=== PATIENT | female | born 1970 | race Caucasian/White ===

== ENCOUNTER 2024-06-19 10:08 | Outpatient (CLI) | payer SELFPAY | END 2024-06-19 10:09 | disposition home or self-care (01) | LOC: CSHWCC 10:08 | PROVIDERS: ATTEND Nurse Practitioner Family | DX: I87.311 Chronic venous hypertension (idiopathic) with ulcer of right lower extremity (principal); L97.212 Non-pressure chronic ulcer of right calf with fat layer exposed; Q85.00 Neurofibromatosis, unspecified | CPT/HCPCS: 11042; 11045; 87070; 87205; 99213; G0463 ==

== ENCOUNTER 2024-06-26 10:26 | Outpatient (CLI) | payer SELFPAY | END 2024-06-26 10:27 | disposition home or self-care (01) | LOC: CSHWCC 10:26 | PROVIDERS: ATTEND Nurse Practitioner Family | DX: I87.311 Chronic venous hypertension (idiopathic) with ulcer of right lower extremity (principal); L97.212 Non-pressure chronic ulcer of right calf with fat layer exposed; Q85.00 Neurofibromatosis, unspecified | CPT/HCPCS: 11042; 11045 ==

== ENCOUNTER 2024-07-10 08:45 | Outpatient (CLI) | payer SELFPAY | END 2024-07-10 08:46 | disposition home or self-care (01) | LOC: CSHWCC 08:45 | PROVIDERS: ATTEND Nurse Practitioner Family | DX: I87.311 Chronic venous hypertension (idiopathic) with ulcer of right lower extremity (principal); L97.212 Non-pressure chronic ulcer of right calf with fat layer exposed; Q85.00 Neurofibromatosis, unspecified | CPT/HCPCS: 11042; 11045; 99213; G0463 ==

== ENCOUNTER 2024-07-17 09:18 | Outpatient (CLI) | payer SELFPAY | END 2024-07-17 09:19 | disposition home or self-care (01) | LOC: CSHWCC 09:18 | PROVIDERS: ATTEND Nurse Practitioner Family | DX: I87.311 Chronic venous hypertension (idiopathic) with ulcer of right lower extremity (principal); L97.212 Non-pressure chronic ulcer of right calf with fat layer exposed; L08.9 Local infection of the skin and subcutaneous tissue, unspecified; Q85.00 Neurofibromatosis, unspecified | CPT/HCPCS: 11042; 11045 ==

== ENCOUNTER 2024-07-24 08:47 | Outpatient (CLI) | payer SELFPAY | END 2024-07-24 08:48 | disposition home or self-care (01) | LOC: CSHWCC 08:47 | PROVIDERS: ATTEND Nurse Practitioner Family | DX: I87.311 Chronic venous hypertension (idiopathic) with ulcer of right lower extremity (principal); L97.212 Non-pressure chronic ulcer of right calf with fat layer exposed; Q85.00 Neurofibromatosis, unspecified; L08.9 Local infection of the skin and subcutaneous tissue, unspecified | CPT/HCPCS: 11042; 11045 ==